=== PATIENT | male | born 2005 | race Caucasian/White ===

== ENCOUNTER 2024-08-05 16:26 | Emergency (ER) | payer SELFPAY ==
[2024-08-05 16:41] VITALS: BP 147/84; PULSE 81; RESP 16; TEMP 37.7; O2SAT 97
--- NOTE | 2024-08-05 17:37 | ED.GENADUL_ITS ---
Discharge Plan Disposition Patient Disposition: Home Discharge Details Clinical Impression: Sore throat Primary Care Provider: Unknown,Unknown ED Provider: Saida Neri Home Meds and New Rx's Prescriptions: No Action No Known Home Meds Discharge Instructions Additional Instructions: A strep culture has been sent out. We will call you with results if there is any positive findings that require antibiotics. I recommend that you establish care with a primary care provider near your home. Stay well-hydrated, drinking plenty of fluids throughout the day. You may find that hot drinks or ice drinks may be more comfortable to consume. Use Tylenol 6 and 50 mg every 6 hours or ibuprofen 600 mg every 8 hours as needed for discomfort. Return to emergency care if develop muffled voice, inability to swallow/handle your secretions, difficulty breathing, swelling on one side of your neck, or if you are very worried and need to be rechecked again immediately Discharge Data Discharge Date/Time-TO BE ENTERED AT DEPARTURE: 08/05/24 18:07 HPI General Date/Time Provider Initiated Documentation: 08/05/24 17:29 . HPI Narrative: Cezar is a 19year old male who presents to the emergency department today for evaluation of sore throat. He reports that this started a couple of days ago. He reports discomfort with swallowing, but is able to handle his secretions. Denies fever/chills, headaches, congestion, chest pain, difficulty breathing, cough, nausea/vomiting, abdominal pain, change in bowel or bladder function. He does have a history of strep as a child, has not had tonsils removed. No known strep contacts. No significant past medical history; denies history of immunocompromise or allergies. He does not have a PCP, is currently visiting from [place]. Denies tobacco use. Physical exam remarkable for tonsillar hypertrophy bilaterally with exudate. Uvula midline. Clear voice. Mild cervical lymphadenopathy. Full painless range of motion of neck. Easy work of breathing, lung sounds clear bilaterally. Normal heart sounds, regular rate and rhythm. D/dx includes but is not limited to: Viral pharyngitis, strep pharyngitis I independently interpreted the following tests: COVID/flu negative. Rapid strep negative. Culture sent. While in the emergency department, Cezar received ibuprofen for sore throat Likely viral pharyngitis. Reviewed discharge instructions with patient, including symptomatic management and red flags indicating need for return to emergency care. Encouraged him to follow-up with PCP in his local area. Related Data Home Medications ?Medication ?Instructions ?Recorded ?Confirmed Unknown [No Known Home Meds] 08/05/24 08/05/24 Allergies Allergy/AdvReac Type Severity Reaction Status Date / Time No Known Allergies Allergy Unverified 08/05/24 16:45 General Stated Complaint: Sorethroat ALBARO: 4 Review of Systems Narrative: See HPI Exam Const General: cooperative, healthy appearing, comfortable, no acute distress, well developed and well groomed Nutritional Appearance: average body habitus and well nourished Orientation: alert and oriented x3 HENMT Head: normal to inspection and atraumatic Ears: hearing grossly normal bilaterally General nose exam: external nose normal Face and sinus: normal facial exam Mouth: oral mucosae normal, lip normal, tongue normal and no muffled voice Throat: uvula midline, no peritonsillar masses and posterior oropharynx abnormal (Tonsillar hypertrophy with exudate) Neck Neck: normal visual inspection and lymphadenopathy (Mild cervical lymphadenopathy) Resp Effort & Inspection: normal respiratory effort and able to speak in complete sentences Skin General skin exam: no rashes or lesions noted Course Vital Signs Vital signs: Vital Signs Temperature 37.7 C H 08/05/24 16:41 Pulse 81 08/05/24 16:41 Respiratory Rate 16 08/05/24 16:41 Blood Pressure 147/84 H 08/05/24 16:41 Pulse Oximetry 97 08/05/24 16:41 Temperature 37.7 C H 08/05/24 16:41 Temperature Source Oral 08/05/24 16:41 Pulse 81 08/05/24 16:41 Respiratory Rate 16 08/05/24 16:41 Respiratory Effort Normal, Non-Labored 08/05/24 16:45 Blood Pressure 147/84 H 08/05/24 16:41 Blood Pressure Position Sitting 08/05/24 16:41 Pulse Oximetry 97 08/05/24 16:41 Oxygen Delivery Method Room Air 08/05/24 16:41 Oxygen Flow Rate 0 08/05/24 16:41 Pain Level 8 08/05/24 16:41 Lab/Test Results Lab/Test Results: 08/05/24 16:43 Tonsil - Not Specified Group A Streptococcus Culture - Pending POC Strep Test-CONOR(Rapid) Start: 08/05/24 16:50 Freq: .Rapid Strep Test Status: Active Protocol: Document 08/05/24 17:05 ELICIA (Rec: 08/05/24 17:05 ELICIA [id number]) Strep test-CONOR(Rapid)-POC POC-Strep test-CONOR (Rapid) Negative POC-Strep test-CONOR (Rapid) Negative Medical Decision Making Quality:SDOH Health Related Social Needs: No Data to Display PFSH All Active Problems (Updated 08/05/24 @ 17:42 by Saida Higginbotham) Sore throat (Acute) Social History Smoking/Tobacco Use Status: Never Smoking risk assessment performed?: Yes Alcohol Intake: never Drug use: Never Substance use type: does not use Do you feel safe at home: Yes Do you feel safe in your relationship?: Yes
[2024-08-05] MEDS: Ibuprofen 600 MG TAB PO (17:44)
[2024-08-05 17:50] VITALS: BP 147/84; PULSE 81; RESP 16; TEMP 37.7; O2SAT 97
== END 2024-08-05 18:07 | disposition home or self-care (01) ==
LOC: ER 18:06
PROVIDERS: Emergency Provider Nurse Practitioner Family
DX: J02.9 Acute pharyngitis, unspecified (principal)
CPT/HCPCS: 87426; 87880; 99283; 87081

== ENCOUNTER 2024-08-08 17:35 | Emergency (ER) | payer SELFPAY ==
[2024-08-08 17:36] VITALS: BP 124/86; PULSE 115; RESP 16; TEMP 36.9; O2SAT 95
--- NOTE | 2024-08-08 18:15 | DI.RAD_ITS ---
Exam(s) XR CHEST 2V PA LATERAL EXAM: XR CHEST 2V PA LATERAL CLINICAL HISTORY: Cough, fever TECHNIQUE: 2D digital imaging was performed of the chest. Two images were obtained. PA and lateral views were obtained. COMPARISON: No exams were available for comparison FINDINGS: MEDIASTINUM: Normal. HEART: Normal. PULMONARY VASCULATURE: Normal. LUNGS: Clear. PLEURAL SPACE: No pleural effusion or pneumothorax. BONE:Within normal limits for the patient's age. OTHER FINDINGS:Normal. IMPRESSION: No acute pulmonary findings. DATA REPOSITORY: RADIATION DOSE DELIVERED:
--- NOTE | 2024-08-08 18:28 | ED.GENADUL_ITS ---
Discharge Plan Disposition Patient Disposition: Home Condition: Stable Discharge Details Clinical Impression: Mononucleosis syndrome Primary Care Provider: Unknown,Unknown ED Provider: Donna Miner Home Meds and New Rx's Prescriptions: New penicillin V potassium 500 mg tablet 500 mg PO BID 10 Days Qty: 20 0RF Rx Instructions: Please take 1 tablet by mouth twice daily for the next 10 days. prednisolone 15 mg/5 mL solution 15 mg PO DAILY 5 Days Qty: 25 0RF Rx Instructions: Take 5 mL by mouth daily for the next 5 days No Action No Known Home Meds Discharge Instructions Instructions: Viral Pharyngitis, Mononucleosis Additional Instructions: The mono test has come back positive. This is a viral illness. However I am going to keep you on the penicillin due to the fever and cough. Please gargle with warm salt water 3 times a day. Take the steroid liquid for 5 days, this will decrease the inflammation in your airway. Please take Tylenol or Ibuprofen with food every 4-6 hours as needed for pain and fever.. Take the antibiotics with yogurt or probiotic as directed. Increase oral fluids. No contact sports for the next 6-8 weeks and avoid any injury to your abdomen if possible. If you have any abdominal pain, vomiting or worsening please return to the ER. Follow up with primary care provider in 3-5 days. Return to ED sooner if any worsening swelling in your throat, trouble swallowing your saliva, muffled voice, or concerns. Thank you for allowing us to care for you today Referrals: Primary Care Provider [Outside] - 1 week HPI General Mode of arrival: ambulatory . Date/Time Provider Initiated Documentation: 08/08/24 17:50 . Limitations to Documentation: no limitations . Information obtained by: patient, family, RN notes reviewed and old records reviewed . HPI Narrative: 19-year-old male presents to the ER with a chief complaint of sore throat, swollen tonsils and exudate for the last 5 days. Patient was seen here 3 days ago had a negative strep and discharged home. On exam patient has white exudate, uvula is midline, tonsils are 3+ bilaterally. No stridor. Also reports fever and cough. Has been taking Tylenol and ibuprofen with little to no relief. Hurts to talk and swallow. Related Data Home Medications ?Medication ?Instructions ?Recorded ?Confirmed Unknown [No Known Home Meds] 08/05/24 08/08/24 penicillin V potassium 500 mg 500 mg PO BID Pharyngitis 10 days 08/08/24 tablet #20 tabs prednisolone 15 mg/5 mL oral 15 mg (5 mL) PO DAILY 08/08/24 solution Mononucleosis, pharyngitis 5 days #25 mL Previous Rx's ?Medication ?Instructions ?Recorded penicillin V potassium 500 mg 500 mg PO BID Pharyngitis 10 days 08/08/24 tablet #20 tabs prednisolone 15 mg/5 mL oral 15 mg (5 mL) PO DAILY 08/08/24 solution Mononucleosis, pharyngitis 5 days #25 mL Allergies Allergy/AdvReac Type Severity Reaction Status Date / Time No Known Allergies Allergy Unverified 08/05/24 16:45 General Stated Complaint: Sorethroat ALBARO: 4 Review of Systems All systems reviewed & are unremarkable except as noted in HPI and below Constitutional Constitutional: Reports as per HPI, Reports fatigue, Reports fever(s), Reports headache(s), Reports lethargy and Reports poor appetite ENT Ears, Nose, Mouth, and Throat: Reports as per HPI, Reports headache(s), Reports sore throat and Reports throat swelling Respiratory Respiratory: Reports chest congestion and Reports cough Neurologic Neurologic: Reports headache(s) Endocrine Endocrine: Reports fatigue Allergic/Immunologic Allergic/Immunologic: Reports throat swelling Exam Narrative Exam Narrative: Constitutional: Alert and oriented x3. Appears stated age. Normal body habitus. Feels hot to the touch. Head: Normocephalic, no trauma. Eyes: Pupils PERRL, Red reflex noted, EOM's intact. Eyelids symmetrical without lesions, discharge, or swelling. ENT: Bilateral TM's WNL, External ear normal to inspection, no mastoid TTP, swelling, or erythema, Nasal turbinates WNL, no nasal discharge. Normal dentition, Posterior pharynx erythemic, uvula is midline, tonsils are 3+ bilaterally positive exudate noted. Handling secretions well. Mild anterior cervical lymphadenopathy. No stridor. Chest: RRR, Normal S1, S2, distal pulses intact. Resp: Lungs clear to auscultation bilaterally, no wheezes, rales, or rhonchi. Abdomen: Soft, non-distended, Normoactive bowel sounds all 4 quads. Musculoskeletal: Normal gait, Moves all 4 extremities without difficulty. Skin: No suspicious rashes or lesions. Capillary refill less than 2 sec. Neurologic: Cranial nerves II-XII intact. Alert and oriented x 3. Motor: No deficits noted. Sensory: Intact bilaterally all 4 extremities. Hematologic/Lymphatic: No ecchymosis, no lymphadenopathy. Course Vital Signs Vital signs: Vital Signs Temperature 36.9 C 08/08/24 17:36 Pulse 115 H 08/08/24 17:36 Respiratory Rate 16 08/08/24 17:36 Blood Pressure 124/86 08/08/24 17:36 Pulse Oximetry 95 08/08/24 17:36 Temperature 36.9 C 08/08/24 17:36 Pulse 115 H 08/08/24 17:36 Respiratory Rate 16 08/08/24 17:36 Respiratory Effort Normal 08/08/24 17:54 Blood Pressure 124/86 08/08/24 17:36 Pulse Oximetry 95 08/08/24 17:36 Pain Level 6 08/08/24 17:36 Lab/Test Results Lab/Test Results: 08/08/24 17:42 Pharynx Group A Streptococcus Culture - Pending POC Strep Test-CONOR(Rapid) Start: 08/08/24 17:42 Freq: .Rapid Strep Test Status: Active Protocol: Document 08/08/24 17:57 (Rec: 08/08/24 17:57 [id number]) Strep test-CONOR(Rapid)-POC POC-Strep test-CONOR (Rapid) Negative POC-Strep test-CNOOR (Rapid) Negative Medical Decision Making 19-year-old male presents to the ER with a chief complaint of sore throat, swollen tonsils and exudate for the last 5 days. Patient was seen here 3 days ago had a negative strep and discharged home. On exam patient has white exudate, uvula is midline, tonsils are 3+ bilaterally. No stridor. Also reports fever and cough. Has been taking Tylenol and ibuprofen with little to no relief. Hurts to talk and swallow. At this time strep rapid is negative, strep culture is also negative. From 3 days ago. Differential diagnose includes mono, pneumonia, Ludewig's angina, viral infection into the throat. However based on exam we will treat with penicillin give dexamethasone 10 mg p.o. and do a chest x-ray. Positive for mononucleosis. I will keep the penicillin prescription due to patient's throat. Will instruct on increasing oral fluids, gargling with warm salt water 3 times daily and activity restrictions. Discussed results with patient and family verbalized understanding he reports improvement after the dexamethasone. We discussed precautions and follow-up care. This text was generated using [employer]Grid[employer] system, please disregard any oddities of phrase or misspellings. Medical Records Medical records reviewed: Yes I reviewed the patient's medical records. Medical records narrative: Seen here on 12-2 Imaging Data Radiologic Study: Imaging: X-Ray My impression: No evidence of effusion, infiltrate or pneumothorax Lab Data Lab results reviewed: Yes I reviewed the patient's lab results. Lab results narrative: 08/08/24 17:42 Pharynx Group A Streptococcus Culture - Pending Laboratory Tests Range/Units 08/08/24 19:11 Monoscreen (Negative) POSITIVE A Quality:SDOH Health Related Social Needs: No Data to Display PFSH All Active Problems (Updated 08/08/24 @ 19:41 by Donna Miner NP) Mononucleosis syndrome (Acute) Sore throat (Acute) Social History Smoking/Tobacco Use Status: Never Smoking risk assessment performed?: Yes Alcohol Intake: never Drug use: Never Substance use type: does not use Do you feel safe at home: Yes Do you feel safe in your relationship?: Yes
[2024-08-08] MEDS: Penicillin V POTASSIUM 500 MG TAB PO (19:02)
[2024-08-08] MEDS: Benzocaine 20% 60 ML CAN TP (19:02)
[2024-08-08] MEDS: Dexamethasone 10 MG/ML VIAL PO (19:02)
[2024-08-08 19:25] LABS: Mono Screening POSITIVE (Negative)
[2024-08-08 20:05] VITALS: BP 125/84; PULSE 84; RESP 16; TEMP 37.5; O2SAT 98
--- NOTE | 2024-08-08 20:06 | DI.VRAD_ITS ---
PROCEDURE INFORMATION: Exam: XR Chest Exam date and time: 08/08/2024 6:47 PM Age: 19 years old Clinical indication: Cough and fever TECHNIQUE: Imaging protocol: Radiologic exam of the chest. Views: 2 views. COMPARISON: No relevant prior studies available. FINDINGS: Lungs: No alveolar infiltrate. Pleural spaces: No pleural fluid collection. No pneumothorax. Heart/Mediastinum: Normal heart size. Bones/joints: Unremarkable for patient age. IMPRESSION: No active pulmonary disease. Dictated and Authenticated by: Juan J Whitten MD. Ordering:JACKLYN Thompson MD
== END 2024-08-08 20:06 | disposition home or self-care (01) ==
PROVIDERS: Emergency Provider Registered Nurse Emergency
DX: B27.90 Infectious mononucleosis, unspecified without complication (principal)
CPT/HCPCS: 87880; 99283; 71046; 86308; 87081; J1100